=== PATIENT | female | born 1995 | race Caucasian/White ===

== ENCOUNTER 2018-03-03 21:43 | Emergency (ER) | payer SELFPAY ==
[~2018-03-03] VITALS: Ht 177.8 cm; Wt 64.0 kg
[2018-03-03 21:48] VITALS: Ht 177.8 cm; Wt 64.0 kg
[2018-03-03 23:32] VITALS: BP 102/57
== END 2018-03-03 23:32 | disposition home or self-care (01) ==
LOC: ED 21:43
DX: F45.8 Other somatoform disorders (principal)
CPT/HCPCS: J1885; Q0092; Q0162